=== PATIENT | female | born 1935 | race Caucasian/White ===

== ENCOUNTER → 2017-02-18 | Outpatient (CLI) | payer MEDICARE, OTHER ==
[~2017-02-18] MED LIST: ALBU8.5H3 INH; ASPI325T4 PO; BECL8.7A5 INH; CALC1CAP8 PO; CETI10TA32 PO; CHOL200024 PO; CLOP75TA22 PO; ESOM40CA PO; EZET1TAB4 PO; FLUT16SP2 INH; HYDR25TA6 PO; MAGN71.5 PO; METO25TA91 PO; MULT-26 PO; NITR0.4T SL; OMEG500C3 PO; VIT1TABL32 PO
== END | disposition home or self-care (01) ==
LOC: LAB 16:40
PROVIDERS: ATTEND Nurse Practitioner
DX: Z02.9 Encounter for administrative examinations, unspecified (principal)

== ENCOUNTER → 2017-08-09 | Outpatient (CLI) | payer MEDICARE, OTHER ==
[~2017-08-09] MED LIST changes: -ALBU8.5H3 INH; +ALBU8.5H8 INH; +ASPI325T17 PO; -ASPI325T4 PO; -BECL8.7A5 INH; +BECL8.7A7 INH; -CLOP75TA22 PO; +CLOP75TA52 PO; +EZET1TAB30 PO; -EZET1TAB4 PO
[2017-08-09 13:15] LABS: ASPARTATE AMINO TRANSFERASE 17 U/L (15-37); BLOOD UREA NITROGEN 19 mg/dL (7-18)
== END | disposition home or self-care (01) ==
LOC: CFH 11:07
PROVIDERS: ATTEND Internal Medicine Cardiovascular Disease
DX: E03.9 Hypothyroidism, unspecified (principal); I10 Essential (primary) hypertension
CPT/HCPCS: 36415; 80053; 80061; 84443

== ENCOUNTER 2017-09-22 11:07 | Inpatient (IN) | payer MEDICARE, OTHER ==
[~2017-09-22] VITALS: Ht 157.5 cm; Wt 48.4 kg
[2017-09-22] MEDS ORDERED: SODIUM CHLORIDE 0.9% 1,000ML IVBOLUS ONE (13:00)
[2017-09-22] MEDS ORDERED: SODIUM CHLORIDE FLUSH 10ML SYR IVF ONE (13:00)
[2017-09-22] MEDS ORDERED: CEFTRIAXONE PMX 1GM/50ML 50 ML IVPB ONE (13:00)
[2017-09-22] MEDS ORDERED: THYROXINE PO (13:32)
[2017-09-22] MEDS ORDERED: AZEL137S4 NAS (13:32)
[2017-09-22 13:33] LABS: HEMATOCRIT 40.6 % (34.6-47.8); HEMOGLOBIN 13.5 g/dL (11.7-16.4); WHITE BLOOD COUNT 8.7 x10^3/uL (3.4-10)
[2017-09-22 13:40] LABS: ASPARTATE AMINO TRANSFERASE 22 U/L (15-37); BLOOD UREA NITROGEN 17 mg/dL (7-18)
[2017-09-22 14:46] LABS: IS PT STATUS REG ER OR PRE ER? YES
[2017-09-22] MEDS ORDERED: OMNIPAQUE 350 MG/ML, 100ML BOTTLE ONE (15:36)
[2017-09-22] MEDS ORDERED: ONDANSETRON ODT 4 MG PO PRN (18:00)
[2017-09-22] MEDS ORDERED: ONDANSETRON 2MG/ML, 2ML IVPush PRN (18:00)
[2017-09-22] MEDS ORDERED: SODIUM CHLORIDE 0.9% 1,000 ML IV SCH (18:30)
[2017-09-22 18:34] VITALS: BP 92/60
[2017-09-22 19:45] VITALS: BP 92/60
[2017-09-22] MEDS: ENOXAPARIN 40 MG/0.4 ML SQ SCH ×2 (20:00→21:21)
[2017-09-22] MEDS: FLUTICASONE NASAL SPRAY 16GM NAS SCH (21:00)
[2017-09-22] MEDS: SIMVASTATIN 10 MG TABLET PO SCH (21:00)
[2017-09-22] MEDS: EZETIMIBE 10 MG TABLET PO SCH (21:20)
[2017-09-22 21:51] LABS: IS PT STATUS REG ER OR PRE ER? NO
[2017-09-22 22:43] LABS: RAPID INFLUENZA A Negative (Negative); RAPID INFLUENZA B Negative (Negative)
[2017-09-23 02:25] VITALS: BP 97/55
[2017-09-23 03:40] LABS: HEMATOCRIT 38.1 % (34.6-47.8); HEMOGLOBIN 12.8 g/dL (11.7-16.4); WHITE BLOOD COUNT 7.9 x10^3/uL (3.4-10)
[2017-09-23 03:44] LABS: ASPARTATE AMINO TRANSFERASE 25 U/L (15-37); BLOOD UREA NITROGEN 13 mg/dL (7-18)
[2017-09-23 03:50] LABS: IS PT STATUS REG ER OR PRE ER? NO
[2017-09-23] MEDS: METOPROLOL SUCCINATE 25 MG TAB.ER.24H PO SCH (05:42)
[2017-09-23] MEDS: LEVOTHYROXINE 25 MCG TABLET PO SCH (05:42)
[2017-09-23 06:29] VITALS: BP 106/61
[2017-09-23] MEDS ORDERED: ALBUTEROL/IPRATROPIUM 2.5MG/0.5MG, 3 ML ONE (06:59)
[2017-09-23] MEDS ORDERED: PANTOPROZOLE 40MG TABLET PO SCH ×2 (07:30→10:00)
[2017-09-23] MEDS ORDERED: ALBUTEROL SULFATE 2.5 MG/3 ML NPPB SCH (09:00)
[2017-09-23] MEDS ORDERED: OMEGA-3/FISH OIL CAPSULE PO SCH ×2 (09:00→21:00)
[2017-09-23] MEDS: BUDESONIDE 0.5 MG/2 ML INHA NPPB SCH ×2 (09:00→20:22)
[2017-09-23] MEDS ORDERED: HYDROCHLOROTHIAZIDE 12.5 MG CAPSULE PO SCH (09:00)
[2017-09-23] MEDS ORDERED: MULTIVITAMINS/MINERALS TABLET PO SCH (09:00)
[2017-09-23] MEDS ORDERED: CHOLECALCIFEROL 1,000 UNIT TABLET PO SCH ×2 (09:00→21:00)
[2017-09-23] MEDS ORDERED: EZETIMIBE 10 MG TABLET PO SCH (09:00)
[2017-09-23] MEDS ORDERED: ASPIRIN 81 MG TABLET EC PO SCH ×2 (09:00→21:00)
[2017-09-23] MEDS ORDERED: MAGNESIUM CHLORIDE 64 MG TABLET.DR PO SCH ×2 (09:00→21:00)
[2017-09-23] MEDS: FLUTICASONE NASAL SPRAY 16GM NAS SCH ×2 (09:25→21:08)
[2017-09-23] MEDS: CETIRIZINE 10 MG TABLET PO SCH (09:29)
[2017-09-23] MEDS: MULTIVITAMIN 1 TABLET PO SCH (09:30)
[2017-09-23 14:21] VITALS: BP 91/53
[2017-09-23] MEDS: POTASSIUM CHLORIDE 20 MEQ TAB.ER.PRT PO SCH (17:15)
[2017-09-23 19:38] VITALS: BP 102/61
[2017-09-23] MEDS: ENOXAPARIN 40 MG/0.4 ML SQ SCH (20:00)
[2017-09-23] MEDS: EZETIMIBE 10 MG TABLET PO SCH (21:15)
[2017-09-23] MEDS: SIMVASTATIN 10 MG TABLET PO SCH (21:16)
[2017-09-24 02:31] VITALS: BP 93/53
[2017-09-24] MEDS: METOPROLOL SUCCINATE 25 MG TAB.ER.24H PO SCH (05:51)
[2017-09-24] MEDS: LEVOTHYROXINE 25 MCG TABLET PO SCH (05:51)
[2017-09-24 06:02] LABS: BLOOD UREA NITROGEN 10 mg/dL (7-18)
[2017-09-24 06:03] LABS: HEMATOCRIT 36.1 % (34.6-47.8); HEMOGLOBIN 11.9 g/dL (11.7-16.4); WHITE BLOOD COUNT 6.2 x10^3/uL (3.4-10)
[2017-09-24 06:43] VITALS: BP 95/61
[2017-09-24] MEDS: BUDESONIDE 0.5 MG/2 ML INHA NPPB SCH (09:00)
[2017-09-24] MEDS ORDERED: HYDROCHLOROTHIAZIDE 25 MG TABLET PO SCH (09:00)
[2017-09-24] MEDS: FLUTICASONE NASAL SPRAY 16GM NAS SCH (09:00)
[2017-09-24] MEDS: POTASSIUM CHLORIDE 20 MEQ TAB.ER.PRT PO SCH (09:22)
[2017-09-24] MEDS: CETIRIZINE 10 MG TABLET PO SCH (09:22)
[2017-09-24] MEDS: MULTIVITAMIN 1 TABLET PO SCH (09:22)
[2017-09-24 12:20] VITALS: BP 87/41
[2017-09-24 13:00] VITALS: BP 122/69
== END 2017-09-24 18:13 | disposition home or self-care (01) | DRG 189 ==
LOC: ED 13:16 → EDIP 17:05 → 4WST 18:14
PROVIDERS: ADMIT Hospitalist; ATTEND Hospitalist
DX: J96.01 Acute respiratory failure with hypoxia (principal); E44.0 Moderate protein-calorie malnutrition; I11.0 Hypertensive heart disease with heart failure; E87.1 Hypo-osmolality and hyponatremia; I50.9 Heart failure, unspecified; I73.9 Peripheral vascular disease, unspecified; E78.5 Hyperlipidemia, unspecified; E87.6 Hypokalemia; F41.9 Anxiety disorder, unspecified; I25.10 Atherosclerotic heart disease of native coronary artery without angina pectoris; J45.909 Unspecified asthma, uncomplicated; K44.9 Diaphragmatic hernia without obstruction or gangrene; Z85.118 Personal history of other malignant neoplasm of bronchus and lung; Z86.73 Personal history of transient ischemic attack (TIA), and cerebral infarction without residual deficits; Z87.891 Personal history of nicotine dependence; Z90.2 Acquired absence of lung [part of]; Z88.1 Allergy status to other antibiotic agents; Z88.0 Allergy status to penicillin; Z88.8 Allergy status to other drugs, medicaments and biological substances; Z79.82 Long term (current) use of aspirin
CPT/HCPCS: 36415; 71010; 71275; 80048; 80053; 80061; 81003; 83605; 84145; 84443; 84484; 85025; 85379; 87040; 87400; 93005; 93306; 94640; 96360; 96361; J1650; J7613; J7626; Q9967; J7030

== ENCOUNTER 2017-10-30 09:25 | Emergency (ER) | payer MEDICARE, OTHER ==
[~2017-10-30] VITALS: Ht 157.5 cm; Wt 47.9 kg
[~2017-10-30 09:25] MED LIST changes: +AZEL137S4 NAS; +THYROXINE PO
[2017-10-30 09:28] VITALS: BP 148/86
== END 2017-10-30 10:17 | disposition home or self-care (01) ==
LOC: ED 09:56
DX: K08.89 Other specified disorders of teeth and supporting structures (principal); J44.9 Chronic obstructive pulmonary disease, unspecified; I10 Essential (primary) hypertension
CPT/HCPCS: 99283

== ENCOUNTER → 2017-11-25 | Outpatient (CLI) | payer MEDICARE, OTHER ==
[2017-11-25 15:23] LABS: BASOPHILS # (AUTO) 0.03 x10^3/uL (0-0.1); BASOPHILS % (AUTO) 0 % (0-1); EOSINOPHILS # (AUTO) 0.17 x10^3/uL (0-0.4); EOSINOPHILS % (AUTO) 2 % (1-7); LYMPHOCYTES # (AUTO) 1.28 x10^3/uL (1-3.4); LYMPHOCYTES % (AUTO) 13 % (22-44); MD NO; MEAN CORPUSCULAR HEMOGLOBIN 30.9 pg (27.0-34.8); MEAN CORPUSCULAR HGB CONC 33.1 g/dL (32.4-35.8); MEAN CORPUSCULAR VOLUME 93.2 fL (80-100); MEAN PLATELET VOLUME 8.7 fL (7.4-10.4); MONOCYTES # (AUTO) 0.72 x10^3/uL (0.2-0.8); MONOCYTES % (AUTO) 7 % (2-9); NEUTROPHILS # (AUTO) 7.54 x10^3/uL (1.8-6.8); NEUTROPHILS % (AUTO) 78 % (42-75); PLATELET COUNT 280 x10^3/uL (130-400); RED BLOOD COUNT 4.04 x10^6/uL (3.82-5.3); RED CELL DISTRIBUTION WIDTH 15.6 % (9.6-15.2)
== END | disposition home or self-care (01) ==
LOC: CFH 13:28
PROVIDERS: ATTEND Otolaryngology
DX: J32.9 Chronic sinusitis, unspecified (principal)
CPT/HCPCS: 36415; 85025

== ENCOUNTER → 2018-05-16 | Outpatient (CLI) | payer MEDICARE, OTHER ==
[2018-05-16 15:58] LABS: ANION GAP 6 mmol/L (5-15); CALCIUM 9.5 mg/dL (8.5-10.1); CHLORIDE 100 mmol/L (98-107); CREATININE 1.14 mg/dL (0.55-1.02)
== END | disposition home or self-care (01) ==
LOC: CFH 15:00
PROVIDERS: ATTEND Internal Medicine Cardiovascular Disease
DX: I10 Essential (primary) hypertension (principal); E78.2 Mixed hyperlipidemia
CPT/HCPCS: 36415; 80048; 83880

== ENCOUNTER 2018-05-18 10:11 | Emergency (ER) | payer MEDICARE, OTHER ==
[~2018-05-18] VITALS: Ht 157.5 cm; Wt 45.0 kg
[2018-05-18 10:14] VITALS: BP 110/65
[2018-05-18] MEDS ORDERED: L.E.T SOLUTION TP ONE (10:25)
[2018-05-18] MEDS ORDERED: DIPH,PERTUSS(ACELL),TET VAC/PF 0.5 ML IM-VACC ONE ×2 (10:30→10:36)
[2018-05-18] MEDS ORDERED: LIDOCAINE-MPF 2% ,5ML ONE (11:29)
== END 2018-05-18 14:23 | disposition home or self-care (01) ==
LOC: ED 11:19
DX: S01.81XA Laceration without foreign body of other part of head, initial encounter (principal); Z87.891 Personal history of nicotine dependence; J44.9 Chronic obstructive pulmonary disease, unspecified; I10 Essential (primary) hypertension; I25.2 Old myocardial infarction; Z86.73 Personal history of transient ischemic attack (TIA), and cerebral infarction without residual deficits; W01.0XXA Fall on same level from slipping, tripping and stumbling without subsequent striking against object, initial encounter; Y93.89 Activity, other specified; Y99.8 Other external cause status; Y92.009 Unspecified place in unspecified non-institutional (private) residence as the place of occurrence of the external cause
CPT/HCPCS: 12052; 70450; 90471; 90715; 93005

== ENCOUNTER 2018-05-23 08:41 | Emergency (ER) | payer MEDICARE, OTHER ==
[~2018-05-23] VITALS: Ht 157.5 cm; Wt 46.0 kg
[2018-05-23 08:43] VITALS: BP 192/97
== END 2018-05-23 11:30 | disposition home or self-care (01) ==
LOC: ED 11:20
DX: S32.591A Other specified fracture of right pubis, initial encounter for closed fracture (principal); S01.81XD Laceration without foreign body of other part of head, subsequent encounter; X58.XXXA Exposure to other specified factors, initial encounter; Y93.89 Activity, other specified; Y99.8 Other external cause status; Y92.89 Other specified places as the place of occurrence of the external cause
CPT/HCPCS: 99284

== ENCOUNTER 2018-05-28 22:09 | Inpatient (IN) | payer MEDICARE, OTHER ==
[~2018-05-28] VITALS: Ht 157.5 cm; Wt 49.2 kg
[2018-05-28] MEDS ORDERED: SODIUM CHLORIDE FLUSH 10ML SYR IVF ONE (22:30)
[2018-05-28 22:34] LABS: MEAN CORPUSCULAR HEMOGLOBIN 31.3 pg (27.0-34.8); MEAN CORPUSCULAR HGB CONC 33.5 g/dL (32.4-35.8); MEAN CORPUSCULAR VOLUME 93.6 fL (80-100); MEAN PLATELET VOLUME 7.4 fL (7.4-10.4); PLATELET COUNT 364 x10^3/uL (130-400); RED CELL DISTRIBUTION WIDTH 13.4 % (9.6-15.2)
[2018-05-28 22:44] LABS: ALANINE AMINOTRANSFERASE 30 U/L (12-78); ALBUMIN 2.5 g/dL (3.4-5.0); ANION GAP 7 mmol/L (5-15); CALCIUM 8.6 mg/dL (8.5-10.1); CHLORIDE 99 mmol/L (98-107); CREATININE 1.28 mg/dL (0.55-1.02)
[2018-05-28 22:48] LABS: ALKALINE PHOSPHATASE 107 U/L (45-117); BILIRUBIN,TOTAL 0.2 mg/dL (0.2-1.0); TOTAL PROTEIN 6.2 g/dL (6.4-8.2); TROPONIN I 0.021 ng/mL (0.000-0.045)
[2018-05-28 22:58] LABS: BASOPHILS # (AUTO) 0.03 x10^3/uL (0-0.1); BASOPHILS % (AUTO) 0 % (0-1); EOSINOPHILS # (AUTO) 0.27 x10^3/uL (0-0.4); EOSINOPHILS % (AUTO) 3 % (1-7); LYMPHOCYTES # (AUTO) 1.35 x10^3/uL (1-3.4); LYMPHOCYTES % (AUTO) 14 % (22-44); MD MORPH REVIEW ONLY; MONOCYTES # (AUTO) 0.82 x10^3/uL (0.2-0.8); MONOCYTES % (AUTO) 8 % (2-9); NEUTROPHILS # (AUTO) 7.38 x10^3/uL (1.8-6.8); NEUTROPHILS % (AUTO) 75 % (42-75)
[2018-05-28 23:08] LABS: <RBC MORPHOLOGY> NORMAL
[2018-05-28 23:09] LABS: <PLATELET ESTIMATE> ADEQUATE; <PLT MORPHOLOGY> NORMAL PLT MORPH; SMUDGE CELLS 1+; TOXIC GRAN 1+
[2018-05-29] VITALS (7 sets, daily range): BP systolic 107–152; BP diastolic 56–84
[2018-05-29] MEDS ORDERED: DOCUSATE 100 MG CAPSULE PO PRN
[2018-05-29] MEDS ORDERED: BISACODYL 10 MG SUPP PR PRN
[2018-05-29] MEDS ORDERED: ONDANSETRON ODT 4 MG PO PRN
[2018-05-29] MEDS ORDERED: ACETAMINOPHEN 325 MG TABLET PO PRN
[2018-05-29] MEDS ORDERED: ONDANSETRON 2MG/ML, 2ML IVPush PRN
[2018-05-29 00:15] LABS: HEMOGLOBIN A1C 5.9 % (4.2-6.3)
[2018-05-29] MEDS ORDERED: ALBUTEROL SULFATE 2.5 MG/3 ML NPPB PRN (00:30)
[2018-05-29 01:15] LABS: MICROSCOPIC NOT IND
[2018-05-29 01:20] LABS: CULTURE INDICATED? NO
[2018-05-29] MEDS ORDERED: ASPI-515 PO (03:40)
[2018-05-29 04:59] LABS: BASOPHILS # (AUTO) 0.03 x10^3/uL (0-0.1); BASOPHILS % (AUTO) 0 % (0-1); EOSINOPHILS # (AUTO) 0.21 x10^3/uL (0-0.4); EOSINOPHILS % (AUTO) 2 % (1-7); LYMPHOCYTES # (AUTO) 1.24 x10^3/uL (1-3.4); LYMPHOCYTES % (AUTO) 15 % (22-44); MD NO; MEAN CORPUSCULAR HEMOGLOBIN 31.2 pg (27.0-34.8); MEAN CORPUSCULAR HGB CONC 33.5 g/dL (32.4-35.8); MEAN CORPUSCULAR VOLUME 93.1 fL (80-100); MEAN PLATELET VOLUME 7.6 fL (7.4-10.4); MONOCYTES # (AUTO) 0.67 x10^3/uL (0.2-0.8); MONOCYTES % (AUTO) 8 % (2-9); NEUTROPHILS # (AUTO) 6.41 x10^3/uL (1.8-6.8); NEUTROPHILS % (AUTO) 75 % (42-75); PLATELET COUNT 348 x10^3/uL (130-400); RED CELL DISTRIBUTION WIDTH 13.5 % (9.6-15.2)
[2018-05-29 05:08] LABS: % IRON SATURATION 15 % (20-55); ANION GAP 8 mmol/L (5-15); CALCIUM 8.6 mg/dL (8.5-10.1); CHLORIDE 99 mmol/L (98-107); CREATININE 1.15 mg/dL (0.55-1.02); IRON LEVEL 35 mcg/dL (50-170); TOTAL IRON BINDING CAPACITY 238 mcg/dL (250-450)
[2018-05-29] MEDS: IBUPROFEN 200 MG TABLET PO PRN ×3 (06:57→19:40)
[2018-05-29] MEDS ORDERED: MAGNESIUM SULFATE PMX 2GM/50ML 50 ML IV ONE ×2 (07:00→11:30)
[2018-05-29] MEDS: SENNA/DOCUSATE TABLET PO SCH (09:00)
[2018-05-29] MEDS ORDERED: SPIR1TAB3 PO (10:10)
[2018-05-29] MEDS ORDERED: TEMPLATE NON-FORMULARY MED. (Vit A,C & E/Lutein/Minerals** (Ocuvite Tablet**) 1 TAB) PO SCH (11:30)
[2018-05-29] MEDS: SPIRONOLACT/HCTZ 25/25MG TABLET PO SCH (11:30)
[2018-05-29] MEDS: EZETIMIBE 10 MG TABLET PO SCH (11:30)
[2018-05-29] MEDS ORDERED: NITROGLYCERIN 0.4 MG BOTTLE (25 TABS) SL PRN (11:30)
[2018-05-29] MEDS: CALCIUM/VITAMIN D3 250-125 TABLET PO SCH ×2 (12:30→12:56)
[2018-05-29] MEDS: FLUTICASONE NASAL SPRAY 16GM NAS SCH ×2 (12:49→21:00)
[2018-05-29] MEDS: Azelastine Hcl Nasal 1 SPRAY) NAS SCH (12:51)
[2018-05-29] MEDS: OMEGA-3/FISH OIL CAPSULE PO SCH (12:55)
[2018-05-29] MEDS: CHOLECALCIFEROL 1,000 UNIT TABLET PO SCH (12:56)
[2018-05-29] MEDS: ASPIRIN 81 MG TABLET EC PO SCH (13:32)
[2018-05-29] MEDS: LEVOTHYROXINE 25 MCG TABLET PO SCH (15:19)
[2018-05-29] MEDS: ALBUTEROL SULFATE 2.5 MG/3 ML NPPB SCH (19:40)
[2018-05-29] MEDS ORDERED: SIMVASTATIN 10 MG TABLET PO SCH (21:00)
[2018-05-30 00:20] VITALS: BP 130/62
[2018-05-30 01:15] VITALS: BP_SYST 128; BP_SYST 130; BP_SYST 139; BP_DIAS 62; BP_DIAS 73; BP_DIAS 82
[2018-05-30] MEDS: IBUPROFEN 200 MG TABLET PO PRN ×2 (01:54→08:19)
[2018-05-30 05:08] VITALS: BP 121/75
[2018-05-30 05:22] LABS: ANION GAP 10 mmol/L (5-15); CALCIUM 8.9 mg/dL (8.5-10.1); CHLORIDE 100 mmol/L (98-107); CREATININE 0.79 mg/dL (0.55-1.02)
[2018-05-30 05:25] LABS: BASOPHILS # (AUTO) 0.03 x10^3/uL (0-0.1); BASOPHILS % (AUTO) 0 % (0-1); EOSINOPHILS # (AUTO) 0.24 x10^3/uL (0-0.4); EOSINOPHILS % (AUTO) 3 % (1-7); LYMPHOCYTES # (AUTO) 1.14 x10^3/uL (1-3.4); LYMPHOCYTES % (AUTO) 13 % (22-44); MD NO; MEAN CORPUSCULAR HEMOGLOBIN 30.7 pg (27.0-34.8); MEAN CORPUSCULAR HGB CONC 33.1 g/dL (32.4-35.8); MEAN CORPUSCULAR VOLUME 92.8 fL (80-100); MEAN PLATELET VOLUME 7.6 fL (7.4-10.4); MONOCYTES # (AUTO) 0.64 x10^3/uL (0.2-0.8); MONOCYTES % (AUTO) 7 % (2-9); NEUTROPHILS # (AUTO) 6.54 x10^3/uL (1.8-6.8); NEUTROPHILS % (AUTO) 76 % (42-75); PLATELET COUNT 324 x10^3/uL (130-400); RED BLOOD COUNT 3.54 x10^6/uL (3.82-5.3); RED CELL DISTRIBUTION WIDTH 13.8 % (9.6-15.2)
[2018-05-30] MEDS ORDERED: METOPROLOL SUCCINATE 25 MG TAB.ER.24H PO SCH (06:00)
[2018-05-30] MEDS ORDERED: OXYM15SP8 NAS (07:19)
[2018-05-30 07:30] VITALS: BP 122/66
[2018-05-30] MEDS ORDERED: PANTOPROZOLE 40MG TABLET PO SCH ×2 (07:30→09:00)
[2018-05-30] MEDS: ALBUTEROL SULFATE 2.5 MG/3 ML NPPB SCH (08:17)
[2018-05-30] MEDS: SENNA/DOCUSATE TABLET PO SCH (08:18)
[2018-05-30] MEDS: OMEGA-3/FISH OIL CAPSULE PO SCH (08:18)
[2018-05-30] MEDS: EZETIMIBE 10 MG TABLET PO SCH (08:19)
[2018-05-30] MEDS: CHOLECALCIFEROL 1,000 UNIT TABLET PO SCH (08:19)
[2018-05-30] MEDS: SPIRONOLACT/HCTZ 25/25MG TABLET PO SCH (08:20)
[2018-05-30] MEDS: ASPIRIN 81 MG TABLET EC PO SCH (08:20)
[2018-05-30] MEDS: LEVOTHYROXINE 25 MCG TABLET PO SCH (08:20)
[2018-05-30] MEDS: Azelastine Hcl Nasal 1 SPRAY) NAS SCH (08:20)
[2018-05-30] MEDS ORDERED: MAGNESIUM CHLORIDE 64 MG TABLET.DR PO SCH (09:00)
[2018-05-30] MEDS ORDERED: MULTIVITAMIN 1 TABLET PO SCH (09:00)
[2018-05-30] MEDS ORDERED: NEXIUM 40 MG HOMEMEDPO SCH (09:00)
[2018-05-30] MEDS ORDERED: OXYMETAZOLINE NASAL SPRAY 0.05%, 15ML NAS PRN ×2 (09:00→09:30)
[2018-05-30] MEDS ORDERED: PROAIR 90 MCG INH SCH ×2 (09:00→21:00)
[2018-05-30] MEDS ORDERED: FLUTICASONE FUROATE 200MCG/INH INH SCH ×2 (09:00)
[2018-05-30] MEDS ORDERED: FLUTICASONE NASAL SPRAY 16GM NAS SCH (09:00)
[2018-05-30 12:50] VITALS: BP 93/63
[2018-05-30] MEDS ORDERED: QVAR 80 MCG INH SCH (21:00)
[2018-05-31] MEDS ORDERED: FLUTICASONE NASAL SPRAY 16GM NAS SCH (09:00)
== END 2018-05-30 15:00 | disposition home health service (06) | DRG 67 ==
LOC: ED 22:51 → EDIP 23:01 → 4EST 23:42
PROVIDERS: ADMIT Internal Medicine; ATTEND Internal Medicine
DX: I65.29 Occlusion and stenosis of unspecified carotid artery (principal); E43 Unspecified severe protein-calorie malnutrition; I50.21 Acute systolic (congestive) heart failure; N17.9 Acute kidney failure, unspecified; J96.11 Chronic respiratory failure with hypoxia; Z68.1 Body mass index [BMI] 19.9 or less, adult; E03.9 Hypothyroidism, unspecified; I11.0 Hypertensive heart disease with heart failure; R79.89 Other specified abnormal findings of blood chemistry; D63.8 Anemia in other chronic diseases classified elsewhere; I73.9 Peripheral vascular disease, unspecified; I25.10 Atherosclerotic heart disease of native coronary artery without angina pectoris; J44.9 Chronic obstructive pulmonary disease, unspecified; K21.9 Gastro-esophageal reflux disease without esophagitis; Z85.118 Personal history of other malignant neoplasm of bronchus and lung; Z99.81 Dependence on supplemental oxygen; Z87.891 Personal history of nicotine dependence; I25.2 Old myocardial infarction; Z86.73 Personal history of transient ischemic attack (TIA), and cerebral infarction without residual deficits; Z90.2 Acquired absence of lung [part of]; Z90.710 Acquired absence of both cervix and uterus; Z90.49 Acquired absence of other specified parts of digestive tract; Z88.0 Allergy status to penicillin; Z88.1 Allergy status to other antibiotic agents; Z72.89 Other problems related to lifestyle
CPT/HCPCS: 36415; 71045; 80048; 80053; 81003; 83036; 83540; 83550; 83735; 83880; 84100; 84443; 84484; 85025; 93005; 93306; 93880; 99285; J3475

== ENCOUNTER → 2018-07-19 | Outpatient (CLI) | payer MEDICARE, OTHER ==
[~2018-07-19] MED LIST changes: +ASPI-515 PO; +OXYM15SP8 NAS; +REGADENOSON 0.4 MG/5 ML SYRINGE ONE; +SPIR1TAB3 PO
== END | disposition home or self-care (01) ==
LOC: CFH 09:10
PROVIDERS: ATTEND Internal Medicine Cardiovascular Disease
DX: I25.10 Atherosclerotic heart disease of native coronary artery without angina pectoris (principal); R06.02 Shortness of breath; Z88.0 Allergy status to penicillin; Z87.891 Personal history of nicotine dependence; Z85.118 Personal history of other malignant neoplasm of bronchus and lung
CPT/HCPCS: 78452; 93017; A9502; J2785

== ENCOUNTER → 2018-07-21 | Outpatient (CLI) | payer MEDICARE, OTHER ==
[~2018-07-21] MED LIST changes: -REGADENOSON 0.4 MG/5 ML SYRINGE ONE
== END | disposition home or self-care (01) ==
LOC: RAD 13:17
PROVIDERS: ATTEND Internal Medicine Cardiovascular Disease
DX: R06.02 Shortness of breath (principal); Z87.891 Personal history of nicotine dependence; Z85.118 Personal history of other malignant neoplasm of bronchus and lung
CPT/HCPCS: 78582; A9540; A9558

== ENCOUNTER → 2018-08-11 | Outpatient (CLI) | payer MEDICARE, OTHER | END | disposition home or self-care (01) | LOC: CFH 14:57 | PROVIDERS: ATTEND Internal Medicine Cardiovascular Disease | DX: I10 Essential (primary) hypertension (principal); E78.2 Mixed hyperlipidemia | CPT/HCPCS: 36415; 83880 ==

== ENCOUNTER 2019-01-31 09:47 | Inpatient (IN) | payer MEDICARE, OTHER ==
[~2019-01-31] VITALS: Ht 157.5 cm; Wt 44.7 kg
--- NOTE | 2019-01-31 09:56 | NUR ---
PT TO ROOM 14 W EMS. ASSISTED TO BED BY ER TECHS
--- NOTE | 2019-01-31 09:58 | NUR ---
TASK RN: JOVAN TREJO FOR C/O DIZZY/LIGHTHEADED AND NAUSEA X 1 WK. DENIES VOMITING/DIARRHEA. STATES "DOESN'T FEEL RIGHT". HAS WELL AT HOME CAME BACK + [place] PT STATES SHE DRANK FROM [place] BEFORE KNOWING IT WAS CONTAMINATED. RECEIVED 4 MP ODT ZOFRAN MGMT SPECIALIST. PT RESTING ON GURNEY. NADN. VSS. MONITORS APPLIED. WARM BLANKET PROVIDED. EKG COMPLETED. REPORT TO INGRID SCHWAB RN.
--- NOTE | 2019-01-31 10:02 | NUR ---
TASK RN: PT ALSO STATES SHE IS TAKING AZITHROMYCIN X 3 WKS FOR SINUS INFECTION.
--- NOTE | 2019-01-31 10:05 | NUR ---
MD IS AT THE BEDSIDE TO ASSESS
--- NOTE | 2019-01-31 10:26 | NUR ---
PHLEBOTOMY IS AT THE BEDSIDE FOR BLOOD SAMPLING. PT IS AWARE OF THE NECESITY OF A UA, AND WILL CALL ME WHEN READY TO PROVIDE A SAMPLE.
[2019-01-31] MEDS ORDERED: SODIUM CHLORIDE FLUSH 10ML SYR IVF ONE (10:30)
[2019-01-31 10:36] LABS: BASOPHILS # (AUTO) 0.05 x10^3/uL (0-0.1); BASOPHILS % (AUTO) 1 % (0-1); EOSINOPHILS # (AUTO) 0.14 x10^3/uL (0-0.4); EOSINOPHILS % (AUTO) 1 % (1-7); LYMPHOCYTES # (AUTO) 1.28 x10^3/uL (1-3.4); LYMPHOCYTES % (AUTO) 13 % (22-44); MD NO; MEAN CORPUSCULAR HGB CONC 34.3 g/dL (32.4-35.8); MEAN CORPUSCULAR VOLUME 93.5 fL (80-100); MEAN PLATELET VOLUME 8.3 fL (7.4-10.4); MONOCYTES # (AUTO) 0.51 x10^3/uL (0.2-0.8); MONOCYTES % (AUTO) 5 % (2-9); NEUTROPHILS # (AUTO) 7.84 x10^3/uL (1.8-6.8); NEUTROPHILS % (AUTO) 80 % (42-75); PLATELET COUNT 215 x10^3/uL (130-400); RED BLOOD COUNT 4.49 x10^6/uL (3.82-5.3); RED CELL DISTRIBUTION WIDTH 12.6 % (9.6-15.2)
[2019-01-31 10:45] LABS: INTERNATIONAL NORMALIZED RATIO 0.97 (0.93-1.1); PROTHROMBIN TIME 10.2 Seconds (9.6-11.5)
[2019-01-31 10:46] LABS: ALANINE AMINOTRANSFERASE 30 U/L (12-78); ALBUMIN 3.3 g/dL (3.4-5.0); ANION GAP 9 mmol/L (5-15); CALCIUM 9.6 mg/dL (8.5-10.1); CHLORIDE 87 mmol/L (98-107); CREATININE 1.29 mg/dL (0.55-1.02)
[2019-01-31 10:50] LABS: ALKALINE PHOSPHATASE 61 U/L (45-117); BILIRUBIN,TOTAL 0.4 mg/dL (0.2-1.0); TOTAL PROTEIN 6.9 g/dL (6.4-8.2); TROPONIN I 0.015 ng/mL (0.000-0.045)
[2019-01-31 11:08] LABS: FREE T4 (FREE THYROXINE) 1.55 ng/dL (0.76-1.46)
[2019-01-31 11:19] LABS: MICROSCOPIC NOT IND
[2019-01-31 11:21] LABS: CULTURE INDICATED? NO
[2019-01-31] MEDS ORDERED: ACETAMINOPHEN 325 MG TABLET PO PRN (12:00)
[2019-01-31] MEDS ORDERED: ONDANSETRON 2MG/ML, 2ML IVPush PRN (12:00)
[2019-01-31] MEDS ORDERED: LIDODERM 5% PATCH TD PRN (12:00)
[2019-01-31] MEDS ORDERED: GUAIFENESIN/DM 200-20MG, 10ML UDC PO PRN (12:00)
[2019-01-31] MEDS ORDERED: DOCUSATE 100 MG CAPSULE PO PRN (12:00)
[2019-01-31] MEDS ORDERED: ONDANSETRON ODT 4 MG PO PRN (12:00)
[2019-01-31] MEDS ORDERED: SODIUM CHLORIDE 0.9% 1,000 ML IV ONE (12:00)
[2019-01-31] MEDS ORDERED: POLYETHYLENE GLYCOL 17 GM PACKET PO PRN (12:00)
[2019-01-31] MEDS ORDERED: hydrALAzine 20 MG/ML, 1ML IVPush PRN (12:00)
--- NOTE | 2019-01-31 12:02 | NUR ---
PT IS AGREEABLE TO ADMISSION. EDUCATION PROVIDED IN REGARD TO PROCESSES FOR SUCH. VS ARE STABLE AND WDL WITH NO ACUTE CHANGES IN CONDITION NOTED AT THIS TIME. I WILL CONTINUE TO MONITOR AND TREAT ORDERED, as well as prn.
--- NOTE | 2019-01-31 12:22 | NUR ---
PT TO CT W TECH
[2019-01-31] MEDS ORDERED: NITROGLYCERIN 0.4 MG BOTTLE (25 TABS) SL PRN (12:30)
--- NOTE | 2019-01-31 12:36 | NUR ---
SBAR REPORT EXCHANGED Denice DELCID (RN) ON THE FLOOR FOR ADMISSION. WE WILL BEGIN TO [facility] FOR TRANSPORT AT THIS TIME.
[2019-01-31 13:28] LABS: CREATININE,URINE RANDOM 45.1 mg/dL
[2019-01-31 13:41] VITALS: BP 119/76
[2019-01-31 13:42] VITALS: BP 99/65
[2019-01-31 13:43] VITALS: BP 91/59
[2019-01-31] MEDS ORDERED: CETI10TA18 PO (14:22)
[2019-01-31] MEDS ORDERED: TORS10TA4 PO (14:22)
[2019-01-31] MEDS ORDERED: HYDR25TA6 PO (14:22)
[2019-01-31 15:47] LABS: OSMOLALITY,URINE 347 mOsm/kg (500-850)
[2019-01-31 16:03] LABS: ANION GAP 6 mmol/L (5-15); CALCIUM 8.9 mg/dL (8.5-10.1); CHLORIDE 91 mmol/L (98-107); CREATININE 1.32 mg/dL (0.55-1.02)
[2019-01-31] MEDS: BECLOMETHASONE DIPROPIONATE 80 MCG INH SCH (16:27)
[2019-01-31] MEDS: TEMPLATE NON-FORMULARY MED. (Vit A,C & E/Lutein/Minerals** (Ocuvite Tablet**) 1 TAB) PO SCH (16:27)
[2019-01-31] MEDS ORDERED: SODIUM CHLORIDE 0.9% 1,000 ML IV SCH (17:30)
[2019-01-31 19:30] LABS: ANION GAP 7 mmol/L (5-15); CALCIUM 8.6 mg/dL (8.5-10.1); CHLORIDE 93 mmol/L (98-107); CREATININE 1.25 mg/dL (0.55-1.02)
[2019-01-31 19:45] VITALS: BP 113/72
[2019-01-31 19:50] VITALS: BP 108/69
[2019-01-31 19:53] VITALS: BP 95/66
[2019-01-31] MEDS: TEMPLATE NON-FORMULARY MED. (Albuterol Sulfate (Proair Hfa) 2 PUFF(S)) INH SCH (22:08)
[2019-01-31 23:34] LABS: ANION GAP 5 mmol/L (5-15); CALCIUM 8.8 mg/dL (8.5-10.1); CHLORIDE 93 mmol/L (98-107); CREATININE 1.26 mg/dL (0.55-1.02)
[2019-02-01] VITALS (11 sets, daily range): BP systolic 81–122; BP diastolic 53–73
[2019-02-01 03:54] LABS: BASOPHILS # (AUTO) 0.02 x10^3/uL (0-0.1); BASOPHILS % (AUTO) 0 % (0-1); EOSINOPHILS # (AUTO) 0.12 x10^3/uL (0-0.4); EOSINOPHILS % (AUTO) 2 % (1-7); LYMPHOCYTES # (AUTO) 1.65 x10^3/uL (1-3.4); LYMPHOCYTES % (AUTO) 22 % (22-44); MD NO; MEAN CORPUSCULAR HEMOGLOBIN 31.7 pg (27.0-34.8); MEAN CORPUSCULAR HGB CONC 33.9 g/dL (32.4-35.8); MEAN CORPUSCULAR VOLUME 93.5 fL (80-100); MEAN PLATELET VOLUME 8.6 fL (7.4-10.4); MONOCYTES # (AUTO) 0.58 x10^3/uL (0.2-0.8); MONOCYTES % (AUTO) 8 % (2-9); NEUTROPHILS # (AUTO) 5.12 x10^3/uL (1.8-6.8); NEUTROPHILS % (AUTO) 68 % (42-75); PLATELET COUNT 198 x10^3/uL (130-400); RED BLOOD COUNT 4.02 x10^6/uL (3.82-5.3); RED CELL DISTRIBUTION WIDTH 12.8 % (9.6-15.2)
[2019-02-01 03:55] LABS: ANION GAP 6 mmol/L (5-15); CALCIUM 9.2 mg/dL (8.5-10.1); CHLORIDE 94 mmol/L (98-107)
[2019-02-01] MEDS: LEVOTHYROXINE 25 MCG TABLET PO SCH (05:33)
[2019-02-01] MEDS: PANTOPROZOLE 40MG TABLET PO SCH (05:33)
[2019-02-01] MEDS ORDERED: METOPROLOL SUCCINATE 25 MG TAB.ER.24H PO SCH (06:00)
[2019-02-01 07:31] LABS: ALBUMIN 2.9 g/dL (3.4-5.0); ANION GAP 6 mmol/L (5-15); CALCIUM 9.4 mg/dL (8.5-10.1); CHLORIDE 94 mmol/L (98-107); CREATININE 1.17 mg/dL (0.55-1.02)
[2019-02-01] MEDS ORDERED: OXYMETAZOLINE NASAL SPRAY 0.05%, 15ML NAS SCH (09:00)
[2019-02-01] MEDS ORDERED: LEVOTHYROXINE 25 MCG TABLET PO SCH (09:00)
[2019-02-01] MEDS: BECLOMETHASONE DIPROPIONATE 80 MCG INH SCH (09:00)
[2019-02-01] MEDS ORDERED: FLUTICASONE NASAL SPRAY 16GM NAS SCH ×2 (09:00→21:00)
[2019-02-01] MEDS ORDERED: TEMPLATE NON-FORMULARY MED. (Azelastine Hcl Nasal 1 SPRAY) NAS SCH (09:00)
[2019-02-01] MEDS: MULTIVITAMIN 1 TABLET PO SCH (09:26)
[2019-02-01] MEDS: ASPIRIN 81 MG TABLET EC PO SCH (09:26)
[2019-02-01] MEDS: SIMVASTATIN 10 MG TABLET PO SCH (09:26)
[2019-02-01] MEDS: CALCIUM/VITAMIN D3 250-125 TABLET PO SCH (09:27)
[2019-02-01] MEDS: OMEGA-3/FISH OIL CAPSULE PO SCH (09:27)
[2019-02-01] MEDS: TEMPLATE NON-FORMULARY MED. (Albuterol Sulfate (Proair Hfa) 2 PUFF(S)) INH SCH ×2 (09:27→21:00)
[2019-02-01] MEDS: EZETIMIBE 10 MG TABLET PO SCH (09:32)
[2019-02-01] MEDS ORDERED: LACTATED RINGERS 500 ML IVBOLUS ONE (10:00)
[2019-02-01] MEDS ORDERED: FLUTICASONE PROPIONATE INH SCH (10:30)
[2019-02-01] MEDS ORDERED: FLUT12AE INH (11:46)
[2019-02-01] MEDS: AZELASTINE HCL NAS SCH ×2 (17:00→21:00)
[2019-02-02] VITALS (7 sets, daily range): BP systolic 100–156; BP diastolic 62–86
[2019-02-02] MEDS: LEVOTHYROXINE 25 MCG TABLET PO SCH (05:50)
[2019-02-02] MEDS: PANTOPROZOLE 40MG TABLET PO SCH (05:50)
[2019-02-02 05:58] LABS: ALBUMIN 2.8 g/dL (3.4-5.0); ANION GAP 4 mmol/L (5-15); CALCIUM 9.3 mg/dL (8.5-10.1); CHLORIDE 97 mmol/L (98-107); CREATININE 1.37 mg/dL (0.55-1.02)
[2019-02-02] MEDS: MULTIVITAMIN 1 TABLET PO SCH (08:59)
[2019-02-02] MEDS: EZETIMIBE 10 MG TABLET PO SCH (08:59)
[2019-02-02] MEDS: ASPIRIN 81 MG TABLET EC PO SCH (08:59)
[2019-02-02] MEDS: SIMVASTATIN 10 MG TABLET PO SCH (08:59)
[2019-02-02] MEDS: OMEGA-3/FISH OIL CAPSULE PO SCH (08:59)
[2019-02-02] MEDS: TEMPLATE NON-FORMULARY MED. (Albuterol Sulfate (Proair Hfa) 2 PUFF(S)) INH SCH ×2 (09:00→21:13)
[2019-02-02] MEDS: TEMPLATE NON-FORMULARY MED. (Vit A,C & E/Lutein/Minerals** (Ocuvite Tablet**) 1 TAB) PO SCH (09:00)
[2019-02-02] MEDS: AZELASTINE HCL NAS SCH ×2 (09:00→21:13)
[2019-02-02] MEDS: CALCIUM/VITAMIN D3 250-125 TABLET PO SCH (09:05)
[2019-02-03 02:01] VITALS: BP 99/71
[2019-02-03] MEDS: PANTOPROZOLE 40MG TABLET PO SCH (06:15)
[2019-02-03] MEDS: LEVOTHYROXINE 25 MCG TABLET PO SCH (06:15)
[2019-02-03 07:30] VITALS: BP 129/81
[2019-02-03 09:26] LABS: ALBUMIN 3.1 g/dL (3.4-5.0); ANION GAP 7 mmol/L (5-15); CALCIUM 9.4 mg/dL (8.5-10.1); CHLORIDE 93 mmol/L (98-107)
[2019-02-03 09:29] LABS: ALANINE AMINOTRANSFERASE 26 U/L (12-78); ALKALINE PHOSPHATASE 59 U/L (45-117); BILIRUBIN,TOTAL 0.4 mg/dL (0.2-1.0); CREATININE 1.02 mg/dL (0.55-1.02); TOTAL PROTEIN 6.6 g/dL (6.4-8.2)
[2019-02-03] MEDS: EZETIMIBE 10 MG TABLET PO SCH (09:43)
[2019-02-03] MEDS: SIMVASTATIN 10 MG TABLET PO SCH (09:43)
[2019-02-03] MEDS: ASPIRIN 81 MG TABLET EC PO SCH (09:43)
[2019-02-03] MEDS: OMEGA-3/FISH OIL CAPSULE PO SCH (09:43)
[2019-02-03] MEDS: CALCIUM/VITAMIN D3 250-125 TABLET PO SCH (09:44)
[2019-02-03] MEDS: TEMPLATE NON-FORMULARY MED. (Albuterol Sulfate (Proair Hfa) 2 PUFF(S)) INH SCH ×3 (09:44→22:38)
[2019-02-03] MEDS: MULTIVITAMIN 1 TABLET PO SCH (09:44)
[2019-02-03] MEDS: AZELASTINE HCL NAS SCH ×3 (09:44→22:38)
[2019-02-03] MEDS: TEMPLATE NON-FORMULARY MED. (Vit A,C & E/Lutein/Minerals** (Ocuvite Tablet**) 1 TAB) PO SCH ×2 (09:44→14:21)
[2019-02-03] MEDS ORDERED: CETI10TA24 PO (09:47)
[2019-02-03 10:47] LABS: SODIUM,URINE RANDOM 26 mmol/L
[2019-02-03 11:03] LABS: OSMOLALITY,URINE 222 mOsm/kg (500-850)
[2019-02-03 20:02] VITALS: BP 148/89
[2019-02-03 22:32] VITALS: BP_SYST 146; BP_SYST 159; BP_DIAS 86; BP_DIAS 91
[2019-02-03 22:33] VITALS: BP 132/82
[2019-02-04] VITALS (10 sets, daily range): BP systolic 94–150; BP diastolic 60–83
[2019-02-04] MEDS: PANTOPROZOLE 40MG TABLET PO SCH (06:11)
[2019-02-04] MEDS: LEVOTHYROXINE 25 MCG TABLET PO SCH (06:11)
[2019-02-04 07:36] LABS: ANION GAP 8 mmol/L (5-15); CALCIUM 9.5 mg/dL (8.5-10.1); CHLORIDE 93 mmol/L (98-107); CREATININE 1.12 mg/dL (0.55-1.02)
[2019-02-04] MEDS: OMEGA-3/FISH OIL CAPSULE PO SCH (08:01)
[2019-02-04] MEDS: TEMPLATE NON-FORMULARY MED. (Vit A,C & E/Lutein/Minerals** (Ocuvite Tablet**) 1 TAB) PO SCH (08:02)
[2019-02-04] MEDS: AZELASTINE HCL NAS SCH (08:02)
[2019-02-04] MEDS: ASPIRIN 81 MG TABLET EC PO SCH (08:02)
[2019-02-04] MEDS: MULTIVITAMIN 1 TABLET PO SCH (08:02)
[2019-02-04] MEDS: TEMPLATE NON-FORMULARY MED. (Albuterol Sulfate (Proair Hfa) 2 PUFF(S)) INH SCH (08:02)
[2019-02-04] MEDS: EZETIMIBE 10 MG TABLET PO SCH (08:02)
[2019-02-04] MEDS: CALCIUM/VITAMIN D3 250-125 TABLET PO SCH (08:02)
[2019-02-04] MEDS: SIMVASTATIN 10 MG TABLET PO SCH (08:02)
== END 2019-02-04 17:43 | disposition home or self-care (01) | DRG 640 ==
LOC: ED 10:43 → EDIP 11:59 → 4WST 12:38
PROVIDERS: ADMIT Internal Medicine; ATTEND Internal Medicine
DX: E87.1 Hypo-osmolality and hyponatremia (principal); N17.0 Acute kidney failure with tubular necrosis; J96.11 Chronic respiratory failure with hypoxia; I95.1 Orthostatic hypotension; T50.2X5A Adverse effect of carbonic-anhydrase inhibitors, benzothiadiazides and other diuretics, initial encounter; E86.9 Volume depletion, unspecified; D63.8 Anemia in other chronic diseases classified elsewhere; E03.9 Hypothyroidism, unspecified; E78.5 Hyperlipidemia, unspecified; I11.0 Hypertensive heart disease with heart failure; I50.9 Heart failure, unspecified; J44.9 Chronic obstructive pulmonary disease, unspecified; K21.9 Gastro-esophageal reflux disease without esophagitis; I25.2 Old myocardial infarction; Z90.2 Acquired absence of lung [part of]; Z88.1 Allergy status to other antibiotic agents; Z88.0 Allergy status to penicillin; Z88.8 Allergy status to other drugs, medicaments and biological substances; Z86.73 Personal history of transient ischemic attack (TIA), and cerebral infarction without residual deficits
CPT/HCPCS: 36415; 70450; 71045; 76770; 80048; 80053; 80069; 81003; 82436; 82533; 82570; 83735; 83880; 83930; 83935; 84133; 84300; 84439; 84443; 84484; 85025; 85610; 85730; 93005; 93306; 93880; 99285; G0378; J7120; J7030

== ENCOUNTER 2019-02-27 12:09 | Outpatient (CLI) | payer MEDICARE, OTHER ==
[~2019-02-27 12:09] MED LIST changes: +CETI10TA18 PO; +CETI10TA24 PO; +FLUT12AE INH; +TORS10TA4 PO
== END 2019-02-27 23:59 | disposition home or self-care (01) ==
LOC: CFH 12:09
PROVIDERS: ATTEND Family Medicine
DX: Z02.9 Encounter for administrative examinations, unspecified (principal)

== ENCOUNTER → 2019-03-06 | Outpatient (CLI) | payer MEDICARE, OTHER | END | disposition home or self-care (01) | LOC: CVU 12:48 | PROVIDERS: ATTEND Family Medicine | DX: I70.208 Unspecified atherosclerosis of native arteries of extremities, other extremity (principal); I82.819 Embolism and thrombosis of superficial veins of unspecified lower extremity; I70.203 Unspecified atherosclerosis of native arteries of extremities, bilateral legs; I10 Essential (primary) hypertension; Z87.891 Personal history of nicotine dependence | CPT/HCPCS: 93922; 93925; 93970 ==

== ENCOUNTER 2019-03-07 00:03 | Emergency (ER) | payer MEDICARE, OTHER ==
[~2019-03-07] VITALS: Ht 157.5 cm; Wt 44.1 kg
--- NOTE | 2019-03-07 00:23 | NUR ---
PT. TO ED WITH C/O "MY HAND WENT LIMP AND WAS VERY TINGLY AND COLD WHEN I TRIED TO TURN ON THE FURNACE, IT WOULDN'T WORK". PT. DENIES ANY KIND OF PAIN. PT. STATES "MY ARM IS JUST BARLY TINGLING NOW, IT FEELS BETTER." PT. HAS EQUAL STRENGTH AND AMBULATES WITH STEADY GIAT. DENIES ANY OTHER SYMPTOMS. NADN. DR. FULTON IN TO EVAL PT. AND DISCUSS POC.
[2019-03-07 00:58] LABS: BASOPHILS # (AUTO) 0.04 x10^3/uL (0-0.1); BASOPHILS % (AUTO) 1 % (0-1); EOSINOPHILS # (AUTO) 0.26 x10^3/uL (0-0.4); EOSINOPHILS % (AUTO) 4 % (1-7); LYMPHOCYTES # (AUTO) 1.51 x10^3/uL (1-3.4); LYMPHOCYTES % (AUTO) 21 % (22-44); MD NO; MEAN CORPUSCULAR HEMOGLOBIN 31.5 pg (27.0-34.8); MEAN CORPUSCULAR HGB CONC 33.2 g/dL (32.4-35.8); MEAN CORPUSCULAR VOLUME 94.8 fL (80-100); MEAN PLATELET VOLUME 8.5 fL (7.4-10.4); MONOCYTES # (AUTO) 0.67 x10^3/uL (0.2-0.8); MONOCYTES % (AUTO) 9 % (2-9); NEUTROPHILS # (AUTO) 4.61 x10^3/uL (1.8-6.8); NEUTROPHILS % (AUTO) 65 % (42-75); PLATELET COUNT 211 x10^3/uL (130-400); RED BLOOD COUNT 3.83 x10^6/uL (3.82-5.3)
[2019-03-07 01:10] LABS: ALANINE AMINOTRANSFERASE 25 U/L (12-78); ALBUMIN 3.1 g/dL (3.4-5.0); ANION GAP 5 mmol/L (5-15); CHLORIDE 107 mmol/L (98-107); CREATININE 1.35 mg/dL (0.55-1.02)
[2019-03-07 01:12] LABS: PROTHROMBIN TIME 10.5 Seconds (9.6-11.5)
[2019-03-07 01:13] LABS: ALKALINE PHOSPHATASE 54 U/L (45-117); BILIRUBIN,TOTAL < 0.1 mg/dL (0.2-1.0); TOTAL PROTEIN 6.2 g/dL (6.4-8.2)
--- NOTE | 2019-03-07 01:43 | NUR ---
DR. FULTON IN TO DISCUSS POC WITH PT. AND FAMILY; REPORT TO TERRELL HUNTER.
[2019-03-07] MEDS ORDERED: ASPIRIN 325 MG TABLET EC PO ONE (02:00)
[2019-03-07] MEDS ORDERED: ASPIRIN 325 MG TABLET EC ONE (02:18)
[2019-03-07 02:22] VITALS: BP 166/81
== END 2019-03-07 02:38 | disposition home or self-care (01) ==
LOC: ED 01:54
DX: G45.9 Transient cerebral ischemic attack, unspecified (principal); I11.0 Hypertensive heart disease with heart failure; I50.9 Heart failure, unspecified; I25.2 Old myocardial infarction; J44.9 Chronic obstructive pulmonary disease, unspecified
CPT/HCPCS: 36415; 70450; 80053; 85025; 85610; 85730; 93005; 99284

== ENCOUNTER → 2019-03-22 | Outpatient (CLI) | payer MEDICARE, OTHER ==
[2019-03-22 12:39] LABS: MICROSCOPIC NOT IND
[2019-03-22 12:43] LABS: BASOPHILS # (AUTO) 0.09 x10^3/uL (0-0.1); BASOPHILS % (AUTO) 1 % (0-1); EOSINOPHILS # (AUTO) 0.21 x10^3/uL (0-0.4); EOSINOPHILS % (AUTO) 3 % (1-7); LYMPHOCYTES # (AUTO) 1.62 x10^3/uL (1-3.4); LYMPHOCYTES % (AUTO) 22 % (22-44); MD NO; MEAN CORPUSCULAR HEMOGLOBIN 30.8 pg (27.0-34.8); MEAN CORPUSCULAR HGB CONC 32.8 g/dL (32.4-35.8); MEAN PLATELET VOLUME 8.9 fL (7.4-10.4); MONOCYTES # (AUTO) 0.42 x10^3/uL (0.2-0.8); MONOCYTES % (AUTO) 6 % (2-9); NEUTROPHILS # (AUTO) 5.01 x10^3/uL (1.8-6.8); NEUTROPHILS % (AUTO) 68 % (42-75); PLATELET COUNT 236 x10^3/uL (130-400); RED BLOOD COUNT 4.35 x10^6/uL (3.82-5.3); RED CELL DISTRIBUTION WIDTH 15.2 % (9.6-15.2)
[2019-03-22 12:48] LABS: CHLORIDE 105 mmol/L (98-107)
[2019-03-22 13:03] LABS: CREATININE,URINE RANDOM 92.3 mg/dL
[2019-03-22 13:06] LABS: ALANINE AMINOTRANSFERASE 25 U/L (12-78); ALBUMIN 3.5 g/dL (3.4-5.0); ALKALINE PHOSPHATASE 62 U/L (45-117); ANION GAP 8 mmol/L (5-15); BILIRUBIN,TOTAL 0.7 mg/dL (0.2-1.0); CALCIUM 9.3 mg/dL (8.5-10.1); CREATININE 1.09 mg/dL (0.55-1.02); TOTAL PROTEIN 6.9 g/dL (6.4-8.2)
[2019-03-22 13:10] LABS: CULTURE INDICATED? NO
== END | disposition home or self-care (01) ==
LOC: CFH 11:08
PROVIDERS: ATTEND Nurse Practitioner Gerontology
DX: N17.9 Acute kidney failure, unspecified (principal); Z88.8 Allergy status to other drugs, medicaments and biological substances; Z79.899 Other long term (current) drug therapy; Z88.0 Allergy status to penicillin; Z88.1 Allergy status to other antibiotic agents
CPT/HCPCS: 36415; 80053; 81003; 82306; 82570; 83735; 83970; 84100; 84156; 84550; 85025

== ENCOUNTER → 2019-05-01 | Outpatient (CLI) | payer MEDICARE, OTHER ==
[~2019-05-01] MED LIST changes: -NITR0.4T SL; +NITR0.4T41 SL
[2019-05-01 12:37] LABS: BASOPHILS # (AUTO) 0.08 x10^3/uL (0-0.1); BASOPHILS % (AUTO) 1 % (0-1); EOSINOPHILS % (AUTO) 3 % (1-7); LYMPHOCYTES # (AUTO) 1.45 x10^3/uL (1-3.4); LYMPHOCYTES % (AUTO) 19 % (22-44); MD NO; MEAN CORPUSCULAR HEMOGLOBIN 30.4 pg (27.0-34.8); MEAN CORPUSCULAR HGB CONC 32.2 g/dL (32.4-35.8); MEAN CORPUSCULAR VOLUME 94.6 fL (80-100); MEAN PLATELET VOLUME 9.2 fL (7.4-10.4); MONOCYTES # (AUTO) 0.49 x10^3/uL (0.2-0.8); MONOCYTES % (AUTO) 7 % (2-9); NEUTROPHILS # (AUTO) 5.29 x10^3/uL (1.8-6.8); NEUTROPHILS % (AUTO) 70 % (42-75); PLATELET COUNT 197 x10^3/uL (130-400); RED BLOOD COUNT 4.68 x10^6/uL (3.82-5.3); RED CELL DISTRIBUTION WIDTH 14.7 % (9.6-15.2)
[2019-05-01 13:02] LABS: ALBUMIN 3.7 g/dL (3.4-5.0)
[2019-05-01 13:35] LABS: ALANINE AMINOTRANSFERASE 25 U/L (12-78); ALKALINE PHOSPHATASE 67 U/L (45-117); BILIRUBIN,TOTAL 0.3 mg/dL (0.2-1.0); CALCIUM 9.6 mg/dL (8.5-10.1); CHOL/HDL RATIO 1.9; CHOLESTEROL, TOTAL 155 mg/dL (140-239); CREATININE 1.21 mg/dL (0.55-1.02); HDL CHOL % 53 % (28-40); HDL CHOLESTEROL (DIRECT) 82 mg/dL (40-60); LDL CHOLESTEROL,CALCULATED 55 mg/dL (54-169); LDL/HDL RATIO 0.7 (0.5-3.0); TOTAL PROTEIN 7.2 g/dL (6.4-8.2); TRIGLYCERIDES 91 mg/dL (50-200); VLDL CHOLESTEROL 18 mg/dL (0-25)
[2019-05-01 13:43] LABS: ANION GAP 8 mmol/L (5-15); CHLORIDE 105 mmol/L (98-107)
== END | disposition home or self-care (01) ==
LOC: CFH 11:04
PROVIDERS: ATTEND Family Medicine
DX: E78.1 Pure hyperglyceridemia (principal); N17.9 Acute kidney failure, unspecified; E78.2 Mixed hyperlipidemia; I12.9 Hypertensive chronic kidney disease with stage 1 through stage 4 chronic kidney disease, or unspecified chronic kidney disease; N18.3 Chronic kidney disease, stage 3 (moderate); I70.203 Unspecified atherosclerosis of native arteries of extremities, bilateral legs; I95.1 Orthostatic hypotension; I50.9 Heart failure, unspecified
CPT/HCPCS: 36415; 80053; 80061; 83880; 84100; 85025

== ENCOUNTER 2019-07-25 14:17 | Outpatient (CLI) | payer MEDICARE, OTHER ==
[2019-07-25 16:10] LABS: FREE T4 (FREE THYROXINE) 1.2 ng/dL (0.76-1.46)
== END 2019-07-25 23:59 | disposition home or self-care (01) ==
LOC: LAB 14:17
PROVIDERS: ATTEND Family Medicine
DX: E03.9 Hypothyroidism, unspecified (principal); E04.1 Nontoxic single thyroid nodule
CPT/HCPCS: 36415; 84439; 84443; 84480

== ENCOUNTER → 2020-01-02 | Outpatient (CLI) | payer MEDICARE, OTHER ==
[~2020-01-02] MED LIST changes: -CETI10TA24 PO; +CETI10TA26 PO
[2020-01-02 13:11] LABS: CHLORIDE 102 mmol/L (98-107)
[2020-01-02 13:19] LABS: HCT (SEDRATE) 39.7 % (34.6-47.8)
[2020-01-02 13:20] LABS: BASOPHILS # (AUTO) 0.03 x10^3/uL (0-0.1); BASOPHILS % (AUTO) 0 % (0-1); EOSINOPHILS # (AUTO) 0.41 x10^3/uL (0-0.4); EOSINOPHILS % (AUTO) 5 % (1-7); LYMPHOCYTES # (AUTO) 1.03 x10^3/uL (1-3.4); LYMPHOCYTES % (AUTO) 12 % (22-44); MD NO; MEAN CORPUSCULAR HEMOGLOBIN 31.1 pg (27.0-34.8); MEAN CORPUSCULAR HGB CONC 32.9 g/dL (32.4-35.8); MEAN CORPUSCULAR VOLUME 94.7 fL (80-100); MONOCYTES # (AUTO) 0.65 x10^3/uL (0.2-0.8); MONOCYTES % (AUTO) 7 % (2-9); NEUTROPHILS # (AUTO) 6.81 x10^3/uL (1.8-6.8); NEUTROPHILS % (AUTO) 76 % (42-75); PLATELET COUNT 340 x10^3/uL (130-400); RED BLOOD COUNT 4.18 x10^6/uL (3.82-5.3); RED CELL DISTRIBUTION WIDTH 13.1 % (9.6-15.2)
[2020-01-02 13:30] LABS: ALANINE AMINOTRANSFERASE 83 U/L (12-78); ALBUMIN 2.7 g/dL (3.4-5.0); ALKALINE PHOSPHATASE 79 U/L (45-117); ANION GAP 10 mmol/L (5-15); BILIRUBIN,TOTAL 0.3 mg/dL (0.2-1.0); CREATININE 1.23 mg/dL (0.55-1.02); FREE T4 (FREE THYROXINE) 1.49 ng/dL (0.76-1.46); TOTAL PROTEIN 7.3 g/dL (6.4-8.2)
== END | disposition home or self-care (01) ==
LOC: CFH 11:30
PROVIDERS: ATTEND Family Medicine
DX: R53.1 Weakness (principal); R82.90 Unspecified abnormal findings in urine
CPT/HCPCS: 36415; 80053; 84439; 84443; 84480; 85025; 85651; 86038; 86140; 86430

== ENCOUNTER → 2020-01-22 | Outpatient (CLI) | payer MEDICARE, OTHER ==
[2020-01-22 13:13] LABS: CREATININE,URINE RANDOM 82.8 mg/dL
[2020-01-22 13:14] LABS: MICROSCOPIC AUTO
[2020-01-22 13:35] LABS: MEAN CORPUSCULAR HEMOGLOBIN 30.3 pg (27.0-34.8); MEAN CORPUSCULAR HGB CONC 32.6 g/dL (32.4-35.8); MEAN PLATELET VOLUME 9.4 fL (7.4-10.4); PLATELET COUNT 245 x10^3/uL (130-400); RED BLOOD COUNT 4.74 x10^6/uL (3.82-5.3); RED CELL DISTRIBUTION WIDTH 14.3 % (9.6-15.2)
[2020-01-22 13:41] LABS: ALBUMIN 3.2 g/dL (3.4-5.0); ANION GAP 8 mmol/L (5-15); CALCIUM 9.3 mg/dL (8.5-10.1); CHLORIDE 104 mmol/L (98-107); CREATININE 1.21 mg/dL (0.55-1.02)
[2020-01-22 14:30] LABS: MD YES
[2020-01-22 14:31] LABS: <PLATELET ESTIMATE> ADEQUATE; <PLT MORPHOLOGY> NORMAL PLT MORPH; <RBC MORPHOLOGY> NORMAL; BANDS%(MANUAL) 2 % (0-7); LYMPH#(MANUAL) 1.99 x10^3/uL (1-3.4); LYMPHS% (MANUAL) 10 % (22-44); METAMYELOCYTES% (MANUAL) 1 % (0-1); MONOS% (MANUAL) 2 % (2-9); MYELOCYTES% (MANUAL) 2 % (0-0); SEG#(MANUAL) 16.52 x10^3/uL (1.8-6.8); SEGS% (MANUAL) 83 % (42-75)
== END | disposition home or self-care (01) ==
LOC: CFH 09:14
PROVIDERS: ATTEND Internal Medicine Cardiovascular Disease
DX: N18.3 Chronic kidney disease, stage 3 (moderate) (principal); I51.9 Heart disease, unspecified; E78.2 Mixed hyperlipidemia; E87.1 Hypo-osmolality and hyponatremia; R60.9 Edema, unspecified; Z68.1 Body mass index [BMI] 19.9 or less, adult
CPT/HCPCS: 36415; 80069; 81001; 82570; 83880; 84156; 84550; 85025

== ENCOUNTER 2020-02-03 11:20 | Inpatient (IN) | payer MEDICARE, OTHER ==
[~2020-02-03] VITALS: Ht 152.4 cm; Wt 46.3 kg
[2020-02-03] MEDS ORDERED: SODIUM CHLORIDE FLUSH 10ML SYR IVF ONE (11:30)
--- NOTE | 2020-02-03 11:42 | NUR ---
Note undone in EDM - 02/03/20 at 1151 by ANDREW JASWINDER. REPORT RECEIVED FROM EMS. PT C/O GENERALIZED WEAKNESS/ABD PAIN WITH CONSTIPATION AND NAUSEA X A FEW WEEKS. PT STATES"I STARTED TAKING PREDONISONE AND I GET WEAKNESS." PT'S AOX4. RESPS EVEN AND UNLABORED. ALL MONITORS IN PLACE. CALL LIGHT WITHIN REACH. PA AT BEDSIDE TO EVALUATE AT THIS TIME.
--- NOTE | 2020-02-03 11:42 | NUR ---
JASWINDER. REPORT RECEIVED FROM EMS. PT C/O GENERALIZED WEAKNESS/ABD PAIN WITH CONSTIPATION AND NAUSEA X A FEW WEEKS. PT STATES"I STARTED TAKING PREDNISOLONE AND I GET WEAKNESS." PT'S AOX4. RESPS EVEN AND UNLABORED. ALL MONITORS IN PLACE. CALL LIGHT WITHIN REACH. PA AT BEDSIDE TO EVALUATE AT THIS TIME.
--- NOTE | 2020-02-03 11:46 | NUR ---
BEDSIDE COMODE WITH HAT IN ROOM. PT AWARES OF UA.
[2020-02-03] MEDS ORDERED: FURO20TA3 PO (11:49)
[2020-02-03] MEDS ORDERED: LEVO25TA4 PO (11:50)
[2020-02-03] MEDS ORDERED: PREDNISOLONE (11:51)
--- NOTE | 2020-02-03 11:52 | NUR ---
EKG DONE AT BEDSIDE BY EMT AT THIS TIME.
[2020-02-03 12:06] LABS: MEAN CORPUSCULAR HEMOGLOBIN 30.3 pg (27.0-34.8); MEAN CORPUSCULAR HGB CONC 32.9 g/dL (32.4-35.8); MEAN CORPUSCULAR VOLUME 92.2 fL (80-100); MEAN PLATELET VOLUME 9.4 fL (7.4-10.4); PLATELET COUNT 127 x10^3/uL (130-400); RED BLOOD COUNT 4.73 x10^6/uL (3.82-5.3); RED CELL DISTRIBUTION WIDTH 14.9 % (9.6-15.2)
--- NOTE | 2020-02-03 12:16 | NUR ---
PT PROVIDED URINE SAMPLE AT THIS TIME. UA SENT.
[2020-02-03 12:17] LABS: ALBUMIN 2.2 g/dL (3.4-5.0); ANION GAP 11 mmol/L (5-15); CALCIUM 8.3 mg/dL (8.5-10.1); CHLORIDE 101 mmol/L (98-107); CREATININE 1.04 mg/dL (0.55-1.02)
[2020-02-03 12:26] LABS: MD YES
[2020-02-03 12:27] LABS: MICROSCOPIC INDICATED
[2020-02-03 12:28] LABS: CULTURE INDICATED? YES
[2020-02-03 12:28] LABS: <PLATELET ESTIMATE> DECREASED; <PLT MORPHOLOGY> NORMAL PLT MORPH; <RBC MORPHOLOGY> NORMAL; LYMPH#(MANUAL) 0.12 x10^3/uL (1-3.4); LYMPHS% (MANUAL) 1 % (22-44); MONOS#(MANUAL) 0.36 x10^3/uL (0.3-2.7); MONOS% (MANUAL) 3 % (2-9); SEG#(MANUAL) 11.62 x10^3/uL (1.8-6.8); SEGS% (MANUAL) 96 % (42-75)
--- NOTE | 2020-02-03 13:05 | NUR ---
PT SLEEPING IN [facility]. RESPS EVEN AND UNLABORED. ALL MONITORS IN PLACE. CALL LIGHT WITHIN REACH.
[2020-02-03] MEDS ORDERED: CEFTRIAXONE PMX 1GM/50ML 50 ML IV ONE (13:30)
--- NOTE | 2020-02-03 13:35 | NUR ---
pt in ct
[2020-02-03] MEDS ORDERED: OMNIPAQUE 350 MG/ML, 100ML BOTTLE ONE (13:36)
--- NOTE | 2020-02-03 13:42 | NUR ---
CLARIFIED ABX ADMI WITH DR PATEL. OK TO GIVE ROCEPHIN WITH BENADRYL. ADV REAC WITH ABX PRIOR.
[2020-02-03] MEDS ORDERED: DIPHENHYDRAMINE 50 MG/ML, 1ML IVPush ONE (14:00)
[2020-02-03] MEDS ORDERED: DIPHENHYDRAMINE 50 MG/ML, 1ML ONE (14:11)
[2020-02-03] MEDS ORDERED: CEFTRIAXONE PMX 1GM/50ML 50 ML ONE (14:11)
[2020-02-03] MEDS ORDERED: SODIUM CHLORIDE 0.9% 1,000 ML IV ONE ×2 (14:20→14:40)
[2020-02-03] MEDS ORDERED: METRONIDAZOLE PMX 500MG/100ML 100 ML IVPB ONE (14:30)
[2020-02-03] MEDS ORDERED: SODIUM CHLORIDE 0.9% 1,000ML IVBOLUS ONE (14:30)
--- NOTE | 2020-02-03 14:34 | NUR ---
NS AND ABX INFUSING AT THIS TIME AFTER BLOOD CULTURE X 2 TIMES. PT MEDICATED BENADRYL BEFORE ABX. PT TOLERATED WELL.
[2020-02-03] MEDS ORDERED: ONDANSETRON 2MG/ML, 2ML ONE (14:40)
[2020-02-03] MEDS ORDERED: POTASSIUM CHLORIDE 20 MEQ in LACTATED RINGERS 1,000 ML IV SCH (14:57)
--- NOTE | 2020-02-03 14:58 | NUR ---
pt medicated per emar for nausea at this time.
[2020-02-03] MEDS ORDERED: ONDANSETRON 2MG/ML, 2ML IVPush ONE (15:00)
[2020-02-03] MEDS ORDERED: hydrALAzine 20 MG/ML, 1ML IVPush PRN (15:00)
[2020-02-03] MEDS ORDERED: ACETAMINOPHEN 325 MG TABLET PO PRN (15:00)
[2020-02-03] MEDS ORDERED: PIPERACILLIN/TAZO/PMX 3.375GM 50 ML IV SCH (15:00)
[2020-02-03] MEDS ORDERED: OXYcodone/APAP 5/325MG TABLET PO PRN (15:00)
[2020-02-03] MEDS ORDERED: LABETALOL 5MG/ML, 20ML IVPush PRN (15:00)
[2020-02-03] MEDS ORDERED: SODIUM CHLORIDE FLUSH 10ML SYR IVF PRN (15:00)
--- NOTE | 2020-02-03 15:00 | NUR ---
hospitalist and surgion at bedside at this time.
[2020-02-03] MEDS: METRONIDAZOLE PMX 500MG/100ML 100 ML IV SCH ×2 (15:30→23:30)
[2020-02-03 15:38] LABS: MEAN CORPUSCULAR HEMOGLOBIN 30.5 pg (27.0-34.8); MEAN CORPUSCULAR HGB CONC 32.9 g/dL (32.4-35.8); MEAN CORPUSCULAR VOLUME 92.7 fL (80-100); MEAN PLATELET VOLUME 9.2 fL (7.4-10.4); PLATELET COUNT 138 x10^3/uL (130-400); RED BLOOD COUNT 4.63 x10^6/uL (3.82-5.3)
--- NOTE | 2020-02-03 15:38 | NUR ---
this rn and cristiano rn attempeted ng tube x 2 time. no success. surgeon at bedside and states"she doesn't need it." cancel ng tube per surgion at this time.
[2020-02-03 15:47] LABS: INTERNATIONAL NORMALIZED RATIO 0.98 (0.93-1.1); PROTHROMBIN TIME 10.4 Seconds (9.6-11.5)
[2020-02-03] MEDS ORDERED: METRONIDAZOLE PMX 500MG/100ML 100 ML ONE (15:54)
[2020-02-03 16:02] LABS: MD YES
--- NOTE | 2020-02-03 16:02 | NUR ---
ns and abx infusing at this time. pt tolerated well.
[2020-02-03 16:06] LABS: <PLATELET ESTIMATE> ADEQUATE; <PLT MORPHOLOGY> NORMAL PLT MORPH; <RBC MORPHOLOGY> NORMAL; BAND#(MANUAL) 0.63 x10^3/uL; BANDS%(MANUAL) 9 % (0-7); LYMPH#(MANUAL) 0.49 x10^3/uL (1-3.4); LYMPHS% (MANUAL) 7 % (22-44); MONOS#(MANUAL) 0.07 x10^3/uL (0.3-2.7); MONOS% (MANUAL) 1 % (2-9); SEG#(MANUAL) 5.81 x10^3/uL (1.8-6.8); SEGS% (MANUAL) 83 % (42-75)
--- NOTE | 2020-02-03 17:11 | NUR ---
REPORT GIVEN TO SHILOH TEJADA. ALL QUESTIONS ANSWERED.
[2020-02-03] MEDS ORDERED: PANTOPRAZOLE 80 MG in SODIUM CHLORIDE 0.9% 50 ML IV ONE (18:00)
[2020-02-03 20:05] VITALS: BP 123/79
[2020-02-03] MEDS: TEMPLATE NON-FORMULARY MED. (Albuterol Sulfate (Proair Hfa) 2 PUFF(S)) HOMEINH SCH (21:00)
[2020-02-03] MEDS ORDERED: TEMPLATE NON-FORMULARY MED. (Albuterol Sulfate (Proair Hfa) 2 PUFF(S)) INH SCH (21:00)
[2020-02-03] MEDS: ONDANSETRON 2MG/ML, 2ML IVPush PRN (21:01)
[2020-02-03] MEDS: CEFTRIAXONE PMX 2GM/50ML 50 ML IV SCH (22:58)
[2020-02-03] MEDS: PANTOPRAZOLE 80 MG in SODIUM CHLORIDE 0.9% 100 ML IV SCH (23:35)
[2020-02-04] MEDS: morphine SULFATE 10 MG/ML, 1ML IVPush PRN ×3 (00:01→17:02)
[2020-02-04 00:03] VITALS: BP 127/76
[2020-02-04] MEDS ORDERED: ERGO2000 PO (02:57)
[2020-02-04] MEDS ORDERED: EZET1TAB35 PO (02:57)
[2020-02-04] MEDS ORDERED: MULT-508 PO (02:57)
[2020-02-04] MEDS ORDERED: VIT1TABL32 PO (02:57)
[2020-02-04] MEDS ORDERED: TORS10TA4 PO (02:57)
[2020-02-04] MEDS ORDERED: CETI10TA18 PO (02:57)
[2020-02-04] MEDS ORDERED: Calcium PO (02:57)
[2020-02-04] MEDS: METRONIDAZOLE PMX 500MG/100ML 100 ML IV SCH ×4 (05:46→23:48)
[2020-02-04] MEDS ORDERED: MAGN400T36 PO (06:41)
[2020-02-04] MEDS ORDERED: AZEL137S4 NAS (06:41)
[2020-02-04] MEDS ORDERED: PRED20TA PO (06:41)
[2020-02-04 06:51] LABS: ALANINE AMINOTRANSFERASE 41 U/L (12-78); ALBUMIN 1.8 g/dL (3.4-5.0); ANION GAP 11 mmol/L (5-15); CALCIUM 8.7 mg/dL (8.5-10.1); CHLORIDE 107 mmol/L (98-107); CREATININE 1.58 mg/dL (0.55-1.02)
[2020-02-04 06:54] LABS: ALKALINE PHOSPHATASE 52 U/L (45-117); BILIRUBIN,TOTAL 0.4 mg/dL (0.2-1.0); TOTAL PROTEIN 5.4 g/dL (6.4-8.2)
[2020-02-04 07:15] VITALS: BP 107/71
[2020-02-04] MEDS ORDERED: TEMPLATE NON-FORMULARY MED. (Esomeprazole Magnesium** (Nexium**) 40 MG) PO SCH (09:00)
[2020-02-04] MEDS: TEMPLATE NON-FORMULARY MED. (Albuterol Sulfate (Proair Hfa) 2 PUFF(S)) HOMEINH SCH ×2 (09:00→20:15)
[2020-02-04] MEDS: ONDANSETRON 2MG/ML, 2ML IVPush PRN ×2 (09:10→17:02)
[2020-02-04] MEDS: PROMETHAZINE 25 MG/ML, 1ML IM PRN ×2 (11:31→21:48)
[2020-02-04] MEDS: PANTOPRAZOLE 80 MG in SODIUM CHLORIDE 0.9% 100 ML IV SCH ×2 (12:17→21:58)
[2020-02-04] MEDS: POTASSIUM CHLORIDE 20 MEQ in LACTATED RINGERS 1,000 ML IV SCH ×2 (12:17→23:48)
[2020-02-04 14:47] VITALS: BP 119/78
[2020-02-04 19:16] VITALS: BP 110/71
[2020-02-04] MEDS: CEFTRIAXONE PMX 2GM/50ML 50 ML IV SCH (22:53)
[2020-02-05 01:03] VITALS: BP 111/72
[2020-02-05 05:36] LABS: ALBUMIN 1.4 g/dL (3.4-5.0); ANION GAP 7 mmol/L (5-15); CALCIUM 8.6 mg/dL (8.5-10.1); CHLORIDE 113 mmol/L (98-107)
[2020-02-05] MEDS: METRONIDAZOLE PMX 500MG/100ML 100 ML IV SCH ×3 (05:36→17:01)
[2020-02-05 05:39] LABS: MEAN CORPUSCULAR VOLUME 93.8 fL (80-100); MEAN PLATELET VOLUME 9.8 fL (7.4-10.4); PLATELET COUNT 99 x10^3/uL (130-400); RED BLOOD COUNT 3.84 x10^6/uL (3.82-5.3); RED CELL DISTRIBUTION WIDTH 15.8 % (9.6-15.2)
[2020-02-05 05:40] LABS: ALANINE AMINOTRANSFERASE 27 U/L (12-78); ALKALINE PHOSPHATASE 55 U/L (45-117); BILIRUBIN,TOTAL 0.3 mg/dL (0.2-1.0); CREATININE 1.22 mg/dL (0.55-1.02); TOTAL PROTEIN 4.8 g/dL (6.4-8.2)
[2020-02-05 06:12] LABS: MD YES
[2020-02-05 06:13] LABS: BAND#(MANUAL) 1.05 x10^3/uL; BANDS%(MANUAL) 11 % (0-7); LYMPH#(MANUAL) 0.38 x10^3/uL (1-3.4); LYMPHS% (MANUAL) 4 % (22-44); MONOS#(MANUAL) 0.38 x10^3/uL (0.3-2.7); MONOS% (MANUAL) 4 % (2-9); SEGS% (MANUAL) 81 % (42-75)
[2020-02-05 06:14] LABS: <PLATELET ESTIMATE> DECREASED; <PLT MORPHOLOGY> NORMAL PLT MORPH; <RBC MORPHOLOGY> NORMAL
[2020-02-05 07:45] VITALS: BP 114/72
[2020-02-05] MEDS: ONDANSETRON 2MG/ML, 2ML IVPush PRN (08:39)
[2020-02-05] MEDS: TEMPLATE NON-FORMULARY MED. (Albuterol Sulfate (Proair Hfa) 2 PUFF(S)) HOMEINH SCH ×2 (09:00→20:25)
[2020-02-05] MEDS: POTASSIUM CHLORIDE 10 MEQ in D5%-LACTATED RINGERS 1,000 ML IV SCH ×2 (09:52→21:04)
[2020-02-05] MEDS: CEFTAZIDIME PMX 2 GM/50ML 50 ML IV SCH ×3 (09:53→23:49)
[2020-02-05 14:24] LABS: ANION GAP 9 mmol/L (5-15); CALCIUM 8.5 mg/dL (8.5-10.1); CHLORIDE 115 mmol/L (98-107); CREATININE 0.97 mg/dL (0.55-1.02)
[2020-02-05 16:59] VITALS: BP 145/81
[2020-02-05] MEDS: PANTOPRAZOLE 80 MG in SODIUM CHLORIDE 0.9% 100 ML IV SCH (17:01)
[2020-02-06] MEDS: METRONIDAZOLE PMX 500MG/100ML 100 ML IV SCH ×4 (00:48→18:29)
[2020-02-06 04:40] LABS: ALBUMIN 1.2 g/dL (3.4-5.0); ANION GAP 8 mmol/L (5-15); CALCIUM 8.2 mg/dL (8.5-10.1); CHLORIDE 118 mmol/L (98-107)
[2020-02-06 04:43] LABS: ALANINE AMINOTRANSFERASE 28 U/L (12-78); ALKALINE PHOSPHATASE 70 U/L (45-117); BILIRUBIN,TOTAL 0.4 mg/dL (0.2-1.0); CREATININE 0.89 mg/dL (0.55-1.02); TOTAL PROTEIN 4.4 g/dL (6.4-8.2)
[2020-02-06] MEDS: PANTOPRAZOLE 80 MG in SODIUM CHLORIDE 0.9% 100 ML IV SCH (05:05)
[2020-02-06] MEDS: POTASSIUM CHLORIDE 10 MEQ in D5%-LACTATED RINGERS 1,000 ML IV SCH ×3 (05:30→20:41)
[2020-02-06 05:47] LABS: MD YES; MEAN CORPUSCULAR HEMOGLOBIN 30.7 pg (27.0-34.8); MEAN CORPUSCULAR HGB CONC 32.7 g/dL (32.4-35.8); MEAN CORPUSCULAR VOLUME 94.1 fL (80-100); MEAN PLATELET VOLUME 10.1 fL (7.4-10.4); PLATELET COUNT 64 x10^3/uL (130-400); RED BLOOD COUNT 3.46 x10^6/uL (3.82-5.3); RED CELL DISTRIBUTION WIDTH 15.9 % (9.6-15.2)
[2020-02-06 05:48] LABS: BAND#(MANUAL) 0.91 x10^3/uL; BANDS%(MANUAL) 9 % (0-7); LYMPHS% (MANUAL) 3 % (22-44); MONOS% (MANUAL) 1 % (2-9); SEG#(MANUAL) 8.79 x10^3/uL (1.8-6.8); SEGS% (MANUAL) 87 % (42-75)
[2020-02-06 05:49] LABS: <PLATELET ESTIMATE> DECREASED; <PLT MORPHOLOGY> NORMAL PLT MORPH; <RBC MORPHOLOGY> NORMAL
[2020-02-06] MEDS: TEMPLATE NON-FORMULARY MED. (Albuterol Sulfate (Proair Hfa) 2 PUFF(S)) HOMEINH SCH ×2 (08:52→20:41)
[2020-02-06] MEDS: CEFTAZIDIME PMX 2 GM/50ML 50 ML IV SCH ×2 (08:52→16:42)
[2020-02-07] MEDS: CEFTAZIDIME PMX 2 GM/50ML 50 ML IV SCH (00:42)
[2020-02-07] MEDS: PANTOPRAZOLE 80 MG in SODIUM CHLORIDE 0.9% 100 ML IV SCH (00:48)
[2020-02-07] MEDS: POTASSIUM CHLORIDE 10 MEQ in D5%-LACTATED RINGERS 1,000 ML IV SCH (01:42)
[2020-02-07] MEDS: METRONIDAZOLE PMX 500MG/100ML 100 ML IV SCH ×2 (01:42→08:25)
[2020-02-07] MEDS: morphine SULFATE 10 MG/ML, 1ML IVPush PRN (03:13)
[2020-02-07 04:43] LABS: ALANINE AMINOTRANSFERASE 23 U/L (12-78); ALBUMIN 1.2 g/dL (3.4-5.0); ANION GAP 8 mmol/L (5-15); CALCIUM 8.1 mg/dL (8.5-10.1); CHLORIDE 117 mmol/L (98-107); CREATININE 0.73 mg/dL (0.55-1.02)
[2020-02-07 04:45] LABS: ALKALINE PHOSPHATASE 62 U/L (45-117); BILIRUBIN,TOTAL 0.1 mg/dL (0.2-1.0); TOTAL PROTEIN 4.4 g/dL (6.4-8.2)
[2020-02-07 04:58] LABS: MEAN CORPUSCULAR HEMOGLOBIN 30.8 pg (27.0-34.8); MEAN CORPUSCULAR HGB CONC 32.8 g/dL (32.4-35.8); PLATELET COUNT 118 x10^3/uL (130-400); RED BLOOD COUNT 3.55 x10^6/uL (3.82-5.3); RED CELL DISTRIBUTION WIDTH 15.5 % (9.6-15.2)
[2020-02-07 05:58] LABS: BASOPHILS % (AUTO) 0 % (0-1); EOSINOPHILS # (AUTO) 0.12 x10^3/uL (0-0.4); EOSINOPHILS % (AUTO) 2 % (1-7); LYMPHOCYTES # (AUTO) 0.31 x10^3/uL (1-3.4); LYMPHOCYTES % (AUTO) 4 % (22-44); MD SCAN; MONOCYTES # (AUTO) 0.03 x10^3/uL (0.2-0.8); MONOCYTES % (AUTO) 0 % (2-9); NEUTROPHILS # (AUTO) 7.96 x10^3/uL (1.8-6.8); NEUTROPHILS % (AUTO) 95 % (42-75)
[2020-02-07] MEDS ORDERED: POTASSIUM CHLORIDE 40 MEQ in SODIUM CHLORIDE 0.9% 500 ML IV ONE (08:30)
[2020-02-07] MEDS ORDERED: LORazepam 2 MG/ML, 1ML IVPush PRN (09:00)
[2020-02-07] MEDS ORDERED: HYDROmorphone 1 MG/ML, 1ML INJ IV PRN (09:00)
[2020-02-07] MEDS ORDERED: ATROPINE OPHTH SOLN 1%, 5ML PO PRN (09:00)
[2020-02-07] MEDS: PANTOPRAZOLE 40MG TABLET PO SCH ×2 (11:42→16:00)
[2020-02-07] MEDS ORDERED: TEMPLATE NON-FORMULARY MED. (Albuterol Sulfate (Proair Hfa) 2 PUFF(S)) HOMEINH PRN (12:00)
[2020-02-07] MEDS: PANTOPRAZOLE 40 MG IV IVPush SCH (13:54)
[2020-02-07] MEDS: MORPHINE SULFATE 4 MG/ML, 1ML IVPush PRN (19:31)
[2020-02-08] MEDS: PANTOPRAZOLE 40 MG IV IVPush SCH ×2 (01:11→12:29)
[2020-02-08] MEDS: MORPHINE SULFATE 4 MG/ML, 1ML IVPush PRN ×2 (01:11→05:54)
[2020-02-08 07:38] VITALS: BP 116/74
[2020-02-08] MEDS ORDERED: POTASSIUM CHLORIDE 10 MEQ in D5%-LACTATED RINGERS 1,000 ML IV SCH (08:00)
[2020-02-08] MEDS ORDERED: PANT40TA5 PO (10:05)
== END 2020-02-08 13:26 | disposition hospice, home (50) | DRG 393 ==
LOC: ED 12:45 → EDIP 14:46 → 4NW 17:45
PROVIDERS: ADMIT Hospitalist; ATTEND Internal Medicine
DX: K63.1 Perforation of intestine (nontraumatic) (principal); E43 Unspecified severe protein-calorie malnutrition; I13.0 Hypertensive heart and chronic kidney disease with heart failure and stage 1 through stage 4 chronic kidney disease, or unspecified chronic kidney disease; E87.0 Hyperosmolality and hypernatremia; N30.00 Acute cystitis without hematuria; T78.2XXA Anaphylactic shock, unspecified, initial encounter; Z68.1 Body mass index [BMI] 19.9 or less, adult; B96.5 Pseudomonas (aeruginosa) (mallei) (pseudomallei) as the cause of diseases classified elsewhere; D69.6 Thrombocytopenia, unspecified; D72.825 Bandemia; E03.9 Hypothyroidism, unspecified; I25.10 Atherosclerotic heart disease of native coronary artery without angina pectoris; I25.2 Old myocardial infarction; I50.9 Heart failure, unspecified; J44.9 Chronic obstructive pulmonary disease, unspecified; K44.9 Diaphragmatic hernia without obstruction or gangrene; K59.00 Constipation, unspecified; M79.7 Fibromyalgia; N18.3 Chronic kidney disease, stage 3 (moderate); R09.02 Hypoxemia; T38.0X5A Adverse effect of glucocorticoids and synthetic analogues, initial encounter; Z51.5 Encounter for palliative care; Z66 Do not resuscitate; Z85.118 Personal history of other malignant neoplasm of bronchus and lung; Z86.73 Personal history of transient ischemic attack (TIA), and cerebral infarction without residual deficits; Z87.11 Personal history of peptic ulcer disease; Z87.891 Personal history of nicotine dependence; Z90.2 Acquired absence of lung [part of]; Z90.49 Acquired absence of other specified parts of digestive tract; Z90.710 Acquired absence of both cervix and uterus; Z99.81 Dependence on supplemental oxygen; X58.XXXA Exposure to other specified factors, initial encounter; Y93.89 Activity, other specified; Y92.89 Other specified places as the place of occurrence of the external cause; Y99.8 Other external cause status; R73.9 Hyperglycemia, unspecified; Z88.0 Allergy status to penicillin; Z88.1 Allergy status to other antibiotic agents; Z88.8 Allergy status to other drugs, medicaments and biological substances; Z88.5 Allergy status to narcotic agent
CPT/HCPCS: 36415; 74022; 74177; 80048; 80053; 81001; 82040; 83605; 83880; 84443; 84484; 85025; 85610; 85730; 87040; 87077; 87086; 87186; 93005; 96374; G0378; J0696; J2405; J2550; J3480; Q9967; C9113; J0713; J1200; J2060; J2270; J7030; J7120; J7121